=== PATIENT | male | born 1950 | race Caucasian/White ===

== ENCOUNTER 2019-07-21 12:46 | Outpatient (CLI) | payer MEDICARE, SELFPAY ==
--- NOTE | 2019-07-21 12:56 | XR_ITS ---
WS: [id number] RIGHT HAND: 3 VIEW(S) TECHNIQUE: PA, oblique and lateral. HISTORY: HAND PAIN, RIGHT COMPARISON: None available. No acute fracture or dislocation. No soft tissue or bone abnormality. Vascular calcifications. XR/XR hand RT min 3V* [id number] IMPRESSION: No RIGHT hand fracture.
== END 2019-07-21 12:47 | disposition home or self-care (01) ==
PROVIDERS: Absent Provider Internal Medicine; Family Provider Internal Medicine; Visit Provider Nurse Practitioner Family
DX: M79.641 Pain in right hand (principal)
CPT/HCPCS: 73130

== ENCOUNTER 2019-08-12 08:51 | Outpatient (CLI) | payer MEDICARE, SELFPAY ==
[2019-08-12 10:09] LABS: Basophils # 0.1 10^3/uL (0.0-0.1); Basophils % 0.7 %; Eosinophils # 0.3 10^3/uL (0.0-0.8); Eosinophils % 2.5 %; Hematocrit 44.7 % (42.0-52.0); Hemoglobin 14.4 g/dL (11.7-16.6); Lymphocytes # 2.3 10^3/uL (0.8-4.8); Lymphocytes % 22.6 %; Mean Corpuscular HGB Conc 32.2 g/dL (30.0-36.0); Mean Corpuscular Hemoglobin 26.8 pg (28.0-34.0); Mean Corpuscular Volume 83.1 fL (80-94); Mean Platelet Volume 11.8 fL (7.4-10.4); Monocytes % 9.6 %; Neutrophils # 6.4 10^3/uL (1.8-7.7); Nucleated Red Blood Cells % 0 %; Platelet Count 247 10^3/cmm (130-400); Red Blood Count 5.38 10^6/uL (4.1-5.3); Red Cell Distribution Width 14.7 % (12.1-15.1); White Blood Count 9.9 10^3/uL (4.0-10.0)
[2019-08-12 10:17] LABS: INR 1.02 (0.8-1.2)
[2019-08-12 10:23] LABS: Alanine Aminotransferase 12 U/L (0-41); Albumin Level 4.9 g/dL (3.5-5.2); Alkaline Phosphatase 82 IU/L (40-130); Anion Gap 15.7 (5-19); Aspartate Amino Transferase 15 U/L (0-40); Blood Urea Nitrogen 23 mg/dL (8-23); Calcium 9.9 mg/dL (8.5-10.5); Carbon Dioxide 24 mmol/L (22-29); Chloride 102 mmol/L (98-107); Globulin 2.5 g/dL (1.3-4.6); Glomerular Filtration Rate 83.7 mL/min (90-130); Glucose 103 mg/dL (74-106); Potassium 4.7 mmol/L (3.5-5.1); Sodium 137 mmol/L (136-145); Total Bilirubin 1.2 mg/dL (0.15-1.2); Total Protein 7.4 g/dL (6.6-8.7)
== END 2019-08-12 08:52 | disposition home or self-care (01) ==
LOC: LAB 09:01
PROVIDERS: Family Provider Internal Medicine; PCP Internal Medicine; Visit Provider Physician Assistant Medical
DX: Z94.4 Liver transplant status (principal); Z98.890 Other specified postprocedural states
CPT/HCPCS: 80053; 80197; 85025; 85610

== ENCOUNTER 2019-09-13 09:29 | Outpatient (CLI) | payer MEDICARE, SELFPAY ==
[2019-09-13 10:05] LABS: Basophils % 0.4 %; Eosinophils # 0.3 10^3/uL (0.0-0.8); Eosinophils % 3.3 %; Hematocrit 46.6 % (42.0-52.0); Lymphocytes % 22.4 %; Mean Corpuscular HGB Conc 32.2 g/dL (30.0-36.0); Mean Corpuscular Hemoglobin 27.7 pg (28.0-34.0); Mean Corpuscular Volume 86.1 fL (80-94); Mean Platelet Volume 11.5 fL (7.4-10.4); Monocytes # 1.1 10^3/uL (0.2-0.9); Neutrophils # 5.6 10^3/uL (1.8-7.7); Neutrophils % 61.2 %; Nucleated Red Blood Cells % 0 %; Platelet Count 244 10^3/cmm (130-400); Red Blood Count 5.41 10^6/uL (4.1-5.3); Red Cell Distribution Width 15.4 % (12.1-15.1); White Blood Count 9.1 10^3/uL (4.0-10.0)
[2019-09-13 10:20] LABS: Alanine Aminotransferase 10 U/L (0-41); Albumin Level 4.6 g/dL (3.5-5.2); Alkaline Phosphatase 93 IU/L (40-130); Anion Gap 13.7 (5-19); Aspartate Amino Transferase 17 U/L (0-40); Blood Urea Nitrogen 18 mg/dL (8-23); Calcium 10.1 mg/dL (8.5-10.5); Carbon Dioxide 27 mmol/L (22-29); Chloride 104 mmol/L (98-107); Globulin 3.2 g/dL (1.3-4.6); Glomerular Filtration Rate 73.9 mL/min (90-130); Glucose 100 mg/dL (65-115); Potassium 4.7 mmol/L (3.5-5.1); Sodium 140 mmol/L (136-145); Total Bilirubin 0.8 mg/dL (0.15-1.2); Total Protein 7.8 g/dL (6.6-8.7)
[2019-09-13 10:34] LABS: Slide Review Slide Review Perform
== END 2019-09-13 09:30 | disposition home or self-care (01) ==
LOC: LAB 09:37
PROVIDERS: Family Provider Internal Medicine; PCP Internal Medicine; Visit Provider Internal Medicine Gastroenterology
DX: Z94.4 Liver transplant status (principal); C22.0 Liver cell carcinoma; C79.70 Secondary malignant neoplasm of unspecified adrenal gland; C22.8 Malignant neoplasm of liver, primary, unspecified as to type; Z51.81 Encounter for therapeutic drug level monitoring
CPT/HCPCS: 36415; 80053; 80197; 85025; 85610

== ENCOUNTER 2019-10-12 08:36 | Outpatient (CLI) | payer MEDICARE, SELFPAY ==
[2019-10-12 09:26] LABS: Basophils # 0.1 10^3/uL (0.0-0.1); Basophils % 0.6 %; Eosinophils # 0.3 10^3/uL (0.0-0.8); Eosinophils % 3.3 %; Hematocrit 44.2 % (42.0-52.0); Hemoglobin 14.2 g/dL (11.7-16.6); Lymphocytes # 2.1 10^3/uL (0.8-4.8); Lymphocytes % 21.6 %; Mean Corpuscular HGB Conc 32.1 g/dL (30.0-36.0); Mean Corpuscular Hemoglobin 27.7 pg (28.0-34.0); Mean Corpuscular Volume 86.2 fL (80-94); Mean Platelet Volume 11.9 fL (7.4-10.4); Monocytes # 1.3 10^3/uL (0.2-0.9); Monocytes % 13.3 %; Neutrophils # 5.9 10^3/uL (1.8-7.7); Neutrophils % 60.3 %; Nucleated Red Blood Cells % 0 %; Platelet Count 251 10^3/cmm (130-400); Red Blood Count 5.13 10^6/uL (4.1-5.3); Red Cell Distribution Width 16.1 % (12.1-15.1); White Blood Count 9.8 10^3/uL (4.0-10.0)
[2019-10-12 09:29] LABS: INR 1.03 (0.8-1.2)
[2019-10-12 09:41] LABS: Alanine Aminotransferase 13 U/L (0-41); Albumin Level 4.5 g/dL (3.5-5.2); Alkaline Phosphatase 87 IU/L (40-130); Anion Gap 14.2 (5-19); Aspartate Amino Transferase 13 U/L (0-40); Blood Urea Nitrogen 18 mg/dL (8-23); Calcium 9.7 mg/dL (8.5-10.5); Carbon Dioxide 25 mmol/L (22-29); Chloride 104 mmol/L (98-107); Globulin 3.1 g/dL (1.3-4.6); Glomerular Filtration Rate 73.9 mL/min (90-130); Glucose 104 mg/dL (65-115); Osmolality Calculated 285 mOsm/kg (285-295); Potassium 4.2 mmol/L (3.5-5.1); Sodium 139 mmol/L (136-145); Total Bilirubin 0.8 mg/dL (0.15-1.2); Total Protein 7.6 g/dL (6.6-8.7)
== END 2019-10-12 08:37 | disposition home or self-care (01) ==
LOC: LAB 08:39
PROVIDERS: Family Provider Internal Medicine; PCP Internal Medicine; Visit Provider Physician Assistant Medical
DX: Z94.4 Liver transplant status (principal); Z51.81 Encounter for therapeutic drug level monitoring
CPT/HCPCS: 80053; 80197; 85025; 85610

== ENCOUNTER 2019-11-15 08:08 | Outpatient (CLI) | payer MEDICARE, SELFPAY ==
[2019-11-15 08:38] LABS: Basophils # 0.1 10^3/uL (0.0-0.1); Basophils % 0.6 %; Eosinophils # 0.5 10^3/uL (0.0-0.8); Hematocrit 44.4 % (42.0-52.0); Hemoglobin 14.6 g/dL (11.7-16.6); Lymphocytes # 2.6 10^3/uL (0.8-4.8); Lymphocytes % 25.5 %; Mean Corpuscular HGB Conc 32.9 g/dL (30.0-36.0); Mean Corpuscular Hemoglobin 28.1 pg (28.0-34.0); Mean Corpuscular Volume 85.4 fL (80-94); Mean Platelet Volume 12.3 fL (7.4-10.4); Monocytes # 1.2 10^3/uL (0.2-0.9); Monocytes % 11.9 %; Neutrophils # 5.8 10^3/uL (1.8-7.7); Neutrophils % 56.3 %; Nucleated Red Blood Cells % 0 %; Platelet Count 206 10^3/cmm (130-400); Red Cell Distribution Width 16.4 % (12.1-15.1); White Blood Count 10.3 10^3/uL (4.0-10.0)
[2019-11-15 08:53] LABS: Alanine Aminotransferase 12 U/L (0-41); Albumin Level 4.5 g/dL (3.5-5.2); Alkaline Phosphatase 87 IU/L (40-130); Anion Gap 17.4 (5-19); Aspartate Amino Transferase 13 U/L (0-40); Blood Urea Nitrogen 21 mg/dL (8-23); Calcium 9.7 mg/dL (8.5-10.5); Carbon Dioxide 23 mmol/L (22-29); Chloride 103 mmol/L (98-107); Globulin 3.6 g/dL (1.3-4.6); Glomerular Filtration Rate 95.6 mL/min (90-130); Glucose 106 mg/dL (65-115); Osmolality Calculated 285 mOsm/kg (285-295); Potassium 4.4 mmol/L (3.5-5.1); Sodium 139 mmol/L (136-145); Total Bilirubin 0.7 mg/dL (0.15-1.2); Total Protein 8.1 g/dL (6.6-8.7)
[2019-11-15 09:09] LABS: INR 0.99 (0.8-1.2)
== END 2019-11-15 08:09 | disposition home or self-care (01) ==
LOC: LAB 08:12
PROVIDERS: Family Provider Internal Medicine; PCP Internal Medicine; Visit Provider Physician Assistant Medical
DX: Z48.23 Encounter for aftercare following liver transplant (principal); Z51.81 Encounter for therapeutic drug level monitoring
CPT/HCPCS: 36415; 80053; 80197; 85025; 85610

== ENCOUNTER 2019-12-20 08:33 | Outpatient (CLI) | payer MEDICARE, SELFPAY ==
[2019-12-20 09:40] LABS: Hematocrit 41.2 % (42.0-52.0); Hemoglobin 13.2 g/dL (11.7-16.6); Mean Corpuscular Hemoglobin 28.6 pg (28.0-34.0); Mean Corpuscular Volume 89.2 fL (80-94); Mean Platelet Volume 11.7 fL (7.4-10.4); Platelet Count 215 10^3/cmm (130-400); Red Blood Count 4.62 10^6/uL (4.1-5.3); Red Cell Distribution Width 15.8 % (12.1-15.1); White Blood Count 10.8 10^3/uL (4.0-10.0)
[2019-12-20 09:55] LABS: Alanine Aminotransferase 11 U/L (0-41); Albumin Level 4.3 g/dL (3.5-5.2); Alkaline Phosphatase 81 IU/L (40-130); Anion Gap 15.4 (5-19); Aspartate Amino Transferase 12 U/L (0-40); Blood Urea Nitrogen 23 mg/dL (8-23); Calcium 9.5 mg/dL (8.5-10.5); Carbon Dioxide 23 mmol/L (22-29); Chloride 105 mmol/L (98-107); Globulin 3.1 g/dL (1.3-4.6); Glomerular Filtration Rate 83.4 mL/min (90-130); Glucose 104 mg/dL (65-115); Osmolality Calculated 285 mOsm/kg (285-295); Potassium 4.4 mmol/L (3.5-5.1); Sodium 139 mmol/L (136-145); Total Bilirubin 0.5 mg/dL (0.15-1.2); Total Protein 7.4 g/dL (6.6-8.7)
[2019-12-20 10:08] LABS: INR 1.03 (0.8-1.2)
[2019-12-20 10:55] LABS: Absolute Eosinophils 0.1 10^3/cmm (0.0-0.7); Absolute Segmented Neutrophil 8.1 10/cmm (1.6-7.1); Eosinophils 1 %; Lymphocytes 19 %; Lymphocytes Absolute 2.3 10^3/cmm (1.2-3.4); Monocytes Absolute 0.3 10^3/cmm (0.1-0.6); Platelet Estimate Normal (Normal); Segmented Neutrophils 75 %; Total Cells Counted 100 (0-100)
[2019-12-20 10:56] LABS: Poikilocytosis 2+
[2019-12-20 10:57] LABS: Burr Cells Trace
== END 2019-12-20 08:34 | disposition home or self-care (01) ==
LOC: LAB 08:38
PROVIDERS: PCP Internal Medicine; Visit Provider Physician Assistant Medical
DX: Z48.23 Encounter for aftercare following liver transplant (principal)
CPT/HCPCS: 80053; 80197; 85007; 85027; 85610

== ENCOUNTER 2020-02-03 08:40 | Outpatient (CLI) | payer MEDICARE, SELFPAY ==
[2020-02-03 09:43] LABS: Hematocrit 39.9 % (42.0-52.0); Hemoglobin 12.1 g/dL (11.7-16.6); Mean Corpuscular HGB Conc 30.3 g/dL (30.0-36.0); Mean Corpuscular Hemoglobin 27.6 pg (28.0-34.0); Mean Corpuscular Volume 91.1 fL (80-94); Mean Platelet Volume 12.4 fL (7.4-10.4); Platelet Count 246 10^3/cmm (130-400); Red Blood Count 4.38 10^6/uL (4.1-5.3); Red Cell Distribution Width 14.6 % (12.1-15.1); White Blood Count 9.9 10^3/uL (4.0-10.0)
[2020-02-03 10:08] LABS: INR 0.96 (0.8-1.2)
[2020-02-03 10:09] LABS: Alanine Aminotransferase 11 U/L (0-41); Albumin Level 4.2 g/dL (3.5-5.2); Alkaline Phosphatase 78 IU/L (40-130); Anion Gap 13.5 (5-19); Aspartate Amino Transferase 11 U/L (0-40); Blood Urea Nitrogen 19 mg/dL (8-23); Calcium 8.6 mg/dL (8.5-10.5); Carbon Dioxide 23 mmol/L (22-29); Chloride 106 mmol/L (98-107); Globulin 3.3 g/dL (1.3-4.6); Glomerular Filtration Rate 83.4 mL/min (90-130); Glucose 100 mg/dL (65-115); Osmolality Calculated 283 mOsm/kg (285-295); Potassium 4.5 mmol/L (3.5-5.1); Sodium 138 mmol/L (136-145); Total Bilirubin 0.8 mg/dL (0.15-1.2); Total Protein 7.5 g/dL (6.6-8.7)
[2020-02-03 10:43] LABS: Absolute Eosinophils 0.6 10^3/cmm (0.0-0.7); Absolute Segmented Neutrophil 6.3 10/cmm (1.6-7.1); Eosinophils 7 %; Lymphocytes 25 %; Monocytes Absolute 0.4 10^3/cmm (0.1-0.6); Platelet Estimate Normal (Normal); Segmented Neutrophils 64 %; Total Cells Counted 100 (0-100)
[2020-02-03 10:44] LABS: Burr Cells 1+
[2020-02-03 10:53] LABS: Poikilocytosis 1+
== END 2020-02-03 08:41 | disposition home or self-care (01) ==
PROVIDERS: PCP Internal Medicine; Visit Provider Physician Assistant Medical
DX: Z94.4 Liver transplant status (principal); C22.0 Liver cell carcinoma; C79.70 Secondary malignant neoplasm of unspecified adrenal gland; C22.8 Malignant neoplasm of liver, primary, unspecified as to type; Z51.81 Encounter for therapeutic drug level monitoring
CPT/HCPCS: 80053; 80197; 85007; 85027; 85610

== ENCOUNTER 2020-03-23 08:33 | Outpatient (CLI) | payer MEDICARE, SELFPAY ==
[2020-03-23 10:07] LABS: Basophils # 0.1 10^3/uL (0.0-0.1); Basophils % 0.8 %; Eosinophils # 0.6 10^3/uL (0.0-0.8); Eosinophils % 6.2 %; Hemoglobin 10.6 g/dL (11.7-16.6); Lymphocytes # 2.6 10^3/uL (0.8-4.8); Lymphocytes % 25.6 %; Mean Corpuscular HGB Conc 31.2 g/dL (30.0-36.0); Mean Corpuscular Volume 83.3 fL (80-94); Monocytes # 1.3 10^3/uL (0.2-0.9); Monocytes % 12.5 %; Neutrophils # 5.51 10^3/uL (1.8-7.7); Neutrophils % 54.6 %; Nucleated Red Blood Cells % 0 %; Platelet Count 289 10^3/cmm (130-400); Red Blood Count 4.08 10^6/uL (4.1-5.3); Red Cell Distribution Width 14.5 % (12.1-15.1); White Blood Count 10.1 10^3/uL (4.0-10.0)
[2020-03-23 10:31] LABS: Alanine Aminotransferase 14 U/L (0-41); Albumin Level 4.5 g/dL (3.5-5.2); Alkaline Phosphatase 79 IU/L (40-130); Anion Gap 11.4 (5-19); Aspartate Amino Transferase 17 U/L (0-40); Blood Urea Nitrogen 20 mg/dL (8-23); Calcium 8.6 mg/dL (8.5-10.5); Carbon Dioxide 25 mmol/L (22-29); Chloride 107 mmol/L (98-107); Globulin 3.2 g/dL (1.3-4.6); Glomerular Filtration Rate 95.6 mL/min (90-130); Glucose 104 mg/dL (65-115); Osmolality Calculated 285 mOsm/kg (285-295); Potassium 4.4 mmol/L (3.5-5.1); Sodium 139 mmol/L (136-145); Total Bilirubin 0.7 mg/dL (0.15-1.2); Total Protein 7.7 g/dL (6.6-8.7)
[2020-03-23 10:32] LABS: INR 1.01 (0.8-1.2)
== END 2020-03-23 08:34 | disposition home or self-care (01) ==
LOC: LAB 08:36
PROVIDERS: PCP Internal Medicine; Visit Provider Physician Assistant Medical
DX: Z94.4 Liver transplant status (principal); C22.0 Liver cell carcinoma; C79.70 Secondary malignant neoplasm of unspecified adrenal gland; C22.8 Malignant neoplasm of liver, primary, unspecified as to type; Z51.81 Encounter for therapeutic drug level monitoring
CPT/HCPCS: 36415; 80053; 80197; 85025; 85610

== ENCOUNTER 2020-06-05 08:20 | Outpatient (CLI) | payer MEDICARE, SELFPAY ==
[2020-06-05 08:55] LABS: Basophils # 0.1 10^3/uL (0.0-0.1); Basophils % 0.8 %; Eosinophils # 0.7 10^3/uL (0.0-0.8); Eosinophils % 7.2 %; Hematocrit 31.5 % (42.0-52.0); Hemoglobin 9.4 g/dL (11.7-16.6); Lymphocytes # 2.4 10^3/uL (0.8-4.8); Lymphocytes % 24.4 %; Mean Corpuscular HGB Conc 29.8 g/dL (30.0-36.0); Mean Corpuscular Hemoglobin 22.1 pg (28.0-34.0); Mean Corpuscular Volume 74.1 fL (80-94); Mean Platelet Volume 11.1 fL (7.4-10.4); Monocytes # 1.2 10^3/uL (0.2-0.9); Monocytes % 12.3 %; Neutrophils # 5.43 10^3/uL (1.8-7.7); Neutrophils % 54.9 %; Nucleated Red Blood Cells % 0 %; Platelet Count 367 10^3/cmm (130-400); Red Blood Count 4.25 10^6/uL (4.1-5.3); Red Cell Distribution Width 17.6 % (12.1-15.1); White Blood Count 9.9 10^3/uL (4.0-10.0)
[2020-06-05 09:25] LABS: INR 1.07 (0.8-1.2)
[2020-06-05 09:36] LABS: 25 Hydroxy Vitamin D 89 ng/mL (30-100); Alanine Aminotransferase 12 U/L (0-41); Albumin Level 4.4 g/dL (3.5-5.2); Alkaline Phosphatase 84 IU/L (40-130); Anion Gap 13.5 (5-19); Aspartate Amino Transferase 12 U/L (0-40); Blood Urea Nitrogen 23 mg/dL (8-23); Calcium 8.8 mg/dL (8.5-10.5); Carbon Dioxide 25 mmol/L (22-29); Chloride 106 mmol/L (98-107); Ferritin 9 ng/mL (30-400); Globulin 3.1 g/dL (1.3-4.6); Glomerular Filtration Rate 83.4 mL/min (90-130); Glucose 101 mg/dL (65-115); Iron 14 ug/dL (59-158); Osmolality Calculated 294 mOsm/kg (285-295); Percent Saturation 3.5 % (20-50); Potassium 4.5 mmol/L (3.5-5.1); Sodium 140 mmol/L (136-145); Total Bilirubin 0.4 mg/dL (0.15-1.2); Total Iron Binding Capacity 393 mcg/dl; Total Protein 7.5 g/dL (6.6-8.7); Unsaturated Iron Binding 379 ug/dL (112-347)
[2020-06-05 09:47] LABS: Folate Level 17.9 ng/mL (4.5-32.2)
[2020-06-05 14:53] LABS: Tumor Marker Alpha Fetoprotein 21.1 ng/mL (0-8.3)
[2020-06-05 15:01] LABS: Vitamin B12 2000 pg/mL (232-1245)
== END 2020-06-05 08:21 | disposition home or self-care (01) ==
LOC: LAB 08:23
PROVIDERS: PCP Internal Medicine; Visit Provider Physician Assistant Medical
DX: Z94.4 Liver transplant status (principal); C22.0 Liver cell carcinoma; C79.70 Secondary malignant neoplasm of unspecified adrenal gland; C22.8 Malignant neoplasm of liver, primary, unspecified as to type; Z51.81 Encounter for therapeutic drug level monitoring
CPT/HCPCS: 36415; 80053; 80197; 82105; 82306; 82607; 82728; 82746; 83540; 83550; 85025; 85610

== ENCOUNTER 2020-08-08 09:21 | Outpatient (CLI) | payer MEDICARE, SELFPAY ==
[2020-08-08 10:56] LABS: Basophils # 0.1 10^3/uL (0.0-0.1); Eosinophils # 0.5 10^3/uL (0.0-0.8); Eosinophils % 5.6 %; Hematocrit 23.2 % (42.0-52.0); Hemoglobin 6.6 g/dL (11.7-16.6); Lymphocytes # 1.9 10^3/uL (0.8-4.8); Lymphocytes % 21.6 %; Mean Corpuscular HGB Conc 28.4 g/dL (30.0-36.0); Mean Corpuscular Volume 66.9 fL (80-94); Mean Platelet Volume 11.5 fL (7.4-10.4); Monocytes # 1.2 10^3/uL (0.2-0.9); Monocytes % 13.9 %; Neutrophils % 57.3 %; Nucleated Red Blood Cells % 0 %; Platelet Count 467 10^3/cmm (130-400); Red Blood Count 3.47 10^6/uL (4.1-5.3); Red Cell Distribution Width 19.7 % (12.1-15.1); White Blood Count 8.7 10^3/uL (4.0-10.0)
[2020-08-08 11:15] LABS: Slide Review Slide Review Perform
[2020-08-08 11:17] LABS: INR 1.11 (0.8-1.2)
[2020-08-08 11:26] LABS: Alanine Aminotransferase 10 U/L (0-41); Alkaline Phosphatase 77 IU/L (40-130); Anion Gap 12.6 (5-19); Aspartate Amino Transferase 10 U/L (0-40); Blood Urea Nitrogen 16 mg/dL (8-23); Calcium 8.8 mg/dL (8.5-10.5); Carbon Dioxide 24 mmol/L (22-29); Chloride 105 mmol/L (98-107); Globulin 2.9 g/dL (1.3-4.6); Glomerular Filtration Rate 73.9 mL/min (90-130); Glucose 100 mg/dL (65-115); Osmolality Calculated 285 mOsm/kg (285-295); Potassium 4.6 mmol/L (3.5-5.1); Sodium 137 mmol/L (136-145); Total Bilirubin 0.7 mg/dL (0.15-1.2); Total Protein 6.9 g/dL (6.6-8.7)
[2020-08-08 14:54] LABS: Tumor Marker Alpha Fetoprotein 29.8 ng/mL (0-8.3)
== END 2020-08-08 09:22 | disposition home or self-care (01) ==
LOC: LAB 09:26
PROVIDERS: PCP Internal Medicine; Visit Provider Physician Assistant Medical
DX: Z94.4 Liver transplant status (principal); C22.0 Liver cell carcinoma; C79.70 Secondary malignant neoplasm of unspecified adrenal gland; C22.8 Malignant neoplasm of liver, primary, unspecified as to type; Z51.81 Encounter for therapeutic drug level monitoring
CPT/HCPCS: 80053; 80197; 82105; 85025; 85610

== ENCOUNTER 2020-08-16 09:24 | Outpatient (CLI) | payer MEDICARE, SELFPAY ==
[2020-08-16 10:07] LABS: Basophils # 0.1 10^3/uL (0.0-0.1); Basophils % 0.7 %; Eosinophils # 0.5 10^3/uL (0.0-0.8); Eosinophils % 4.8 %; Hematocrit 28.8 % (42.0-52.0); Hemoglobin 7.9 g/dL (11.7-16.6); Lymphocytes # 2.5 10^3/uL (0.8-4.8); Lymphocytes % 25.8 %; Mean Corpuscular HGB Conc 27.4 g/dL (30.0-36.0); Mean Corpuscular Hemoglobin 19.8 pg (28.0-34.0); Mean Corpuscular Volume 72.2 fL (80-94); Mean Platelet Volume 11.1 fL (7.4-10.4); Monocytes # 1.2 10^3/uL (0.2-0.9); Monocytes % 12.7 %; Neutrophils # 5.39 10^3/uL (1.8-7.7); Neutrophils % 55.3 %; Nucleated Red Blood Cells % 0 %; Platelet Count 508 10^3/cmm (130-400); Red Blood Count 3.99 10^6/uL (4.1-5.3); Red Cell Distribution Width 27.1 % (12.1-15.1); White Blood Count 9.8 10^3/uL (4.0-10.0)
== END 2020-08-16 09:25 | disposition home or self-care (01) ==
PROVIDERS: PCP Internal Medicine; Visit Provider Internal Medicine
DX: D62 Acute posthemorrhagic anemia (principal)
CPT/HCPCS: 85025; 86850; 86900

== ENCOUNTER 2020-09-20 08:17 | Outpatient (CLI) | payer MEDICARE, SELFPAY ==
[2020-09-20 08:47] LABS: Basophils # 0.1 10^3/uL (0.0-0.1); Basophils % 0.6 %; Eosinophils # 0.5 10^3/uL (0.0-0.8); Eosinophils % 5.1 %; Hematocrit 40.8 % (42.0-52.0); Hemoglobin 12.6 g/dL (11.7-16.6); Lymphocytes # 2.3 10^3/uL (0.8-4.8); Lymphocytes % 23.7 %; Mean Corpuscular HGB Conc 30.9 g/dL (30.0-36.0); Mean Corpuscular Hemoglobin 25.6 pg (28.0-34.0); Mean Corpuscular Volume 82.9 fL (80-94); Monocytes % 10.6 %; Neutrophils # 5.66 10^3/uL (1.8-7.7); Neutrophils % 59.5 %; Nucleated Red Blood Cells % 0 %; Platelet Count 309 10^3/cmm (130-400); Red Blood Count 4.92 10^6/uL (4.1-5.3); White Blood Count 9.5 10^3/uL (4.0-10.0)
[2020-09-20 09:12] LABS: INR 1.05 (0.8-1.2)
[2020-09-20 09:18] LABS: Alanine Aminotransferase 13 U/L (0-41); Albumin Level 4.4 g/dL (3.5-5.2); Alkaline Phosphatase 74 IU/L (40-130); Anion Gap 11.3 (5-19); Aspartate Amino Transferase 15 U/L (0-40); Blood Urea Nitrogen 22 mg/dL (8-23); Calcium 9.2 mg/dL (8.5-10.5); Carbon Dioxide 27 mmol/L (22-29); Chloride 103 mmol/L (98-107); Globulin 3.3 g/dL (1.3-4.6); Glucose 94 mg/dL (65-115); Osmolality Calculated 287 mOsm/kg (285-295); Potassium 4.3 mmol/L (3.5-5.1); Sodium 137 mmol/L (136-145); Total Bilirubin 0.5 mg/dL (0.15-1.2); Total Protein 7.7 g/dL (6.6-8.7)
[2020-09-20 09:45] LABS: Add RBC Morph Yes; Slide Review Slide Review Perform
[2020-09-20 09:46] LABS: Mean Platelet Volume 8.3 fL (7.4-10.4)
[2020-09-20 09:51] LABS: Anisocytosis 2+; Dimorphic RBC 2+; Microcytosis 1+; Ovalocytes 1+; Poikilocytosis 2+; RBC Morph Comp Yes; Schistocytes 1+; Tear Drop Cells Trace
== END 2020-09-20 08:18 | disposition home or self-care (01) ==
PROVIDERS: PCP Internal Medicine; Visit Provider Physician Assistant Medical
DX: Z94.4 Liver transplant status (principal); C22.0 Liver cell carcinoma; C79.70 Secondary malignant neoplasm of unspecified adrenal gland; C22.8 Malignant neoplasm of liver, primary, unspecified as to type; Z51.81 Encounter for therapeutic drug level monitoring
CPT/HCPCS: 36415; 80053; 80197; 85025; 85610

== ENCOUNTER 2020-10-03 08:30 | Emergency (ER) | payer MEDICARE, SELFPAY ==
[2020-10-03 08:55] VITALS: BP 141/92; PULSE 70; RESP 16; TEMP 36.8; O2SAT 99; BMI 24.3
[2020-10-03 09:05] VITALS: BP 141/92; PULSE 65; RESP 16; O2SAT 100
--- NOTE | 2020-10-03 09:09 | CT_ITS ---
WS: [id number] CT ABDOMEN PELVIS TECHNIQUE: Contrast-enhanced CT of the abdomen and pelvis with coronal and sagittal reformatted image s. CLINICAL INFORMATION: abd pain COMPARISON: None. DLP: 1020.[address] scans at [facility] use at least one of these dose optimization techniques: automat ed exposure control; mA and/or kV adjustment per patient size (includes targeted exams where dose is matched to clinical indication); or iterative reconstruction. FINDINGS:Normal sigmoid colon. No evidence of high-grade small or large bowel obstruction. Inflammato ry stranding and edema in short segment left descending colon and left lower quadrant likely due to d iverticulitis or colitis. Single surgical clip in this area. Small associated peripheral enhancing lo bulated abscess measuring 11 x 10 mm and 17 x 10 mm. Diffuse fatty infiltration of the liver. Normal portal vein and splenic vein. Normal GE junction. Yamilet or cholecystectomy. Dilatation of the common bile duct or choledochal cyst in the gallbladder fossa w hich tapers normally distally. Pancreatic head is normal. 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 This measures approximately 1.7 x 2.1 CM. Associated calcified vessel. Lung bases are well aerated. Postoperative changes left adrenal fossa with residual left adrenal gla nd tissue. No hydronephrosis in either kidney. Normal renal parenchymal enhancement. Mild renal corti rufino atrophy.Chronic appearing traumatic postoperative changes involving the spleen with multiple smal l splenules and calcification. Normal caliber abdominal aorta. Aortic calcification. Minimal chronic compression superior endplate L 2 with Schmorl's node. No abdominal or pelvic lymphadenopathy. A few prominent lymph nodes in the upper abdomen likely reactive. No periaortic or retroperitoneal ly mphadenopathy. CT/CT abdomen pelvis w con* [id number] IMPRESSION: 1. Prominent inflammatory stranding and edema involving short segment descendi ng left colon and left lower quadrant with colonic thickening and induration li jessie acute diverticulitis or colitis. Small eccentric lobulated peripheral enha ncing fluid collection measuring 11 x 10 mm and 17 x 10 mm. 2. Hazy induration central mesentery likely due to chronic mesenteric infarct with fat necrosis described above. 3. Prior postoperative changes cholecystectomy with dilated common bile duct o r choledochal cyst in the gallbladder fossa. Normal tapering of the common bile duct distally. 4. Prior postoperative changes left adrenal fossa with posttraumatic or postop erative changes involving the spleen 5. No evidence of high-grade small or large bowel obstruction. 6. Enlarged prostate measuring 4.8 cm 7. Diffuse fatty infiltration liver. Notified Jeffrey Lofton DO at 10/03/2020 10:04 AM.
--- NOTE | 2020-10-03 09:13 | ED_ITS ---
HPI - Abdominal Pain General: Chief Complaint: Abdominal Pain Stated Complaint: ab pain, blood in stool Time Seen by Provider: 10/03/20 08:39 History of Present Illness: HPI narrative: 70-year-old male presents emergency room with complaint of lower abdominal pain that he had for the last several days he is also had black tarry stools. 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 He has been getting follow-up regularly in [place] and recently had repeat imaging that had some concerns but is not sure exactly what they were. Initially he told me he had some bright red blood mixed in the stool and this is mostly black stool. He has not had any epigastric discomfort he is not on any anticoagulants. No hematemesis or coffee-ground emesis. MD elicited complaint: abdominal pain Pertinent past history: constipation and other (Liver CA and adrenal CA) Onset (ago): day(s) Pain Consistency: constant Location: RLQ Severity: moderate Quality: cramping and stabbing Radiation: none Migration to: no migration Exacerbating factors: nothing Relieving factors: nothing Associated Symptoms: Reports hematochezia, melena, nausea and poor appetite; Denies anorexia, belching, bloating, change in bowel habits, change in stool character, chills, coffee ground emesis, constipation, GI cramping, diarrhea, dyspepsia, dysuria, excessive flatus, fever(s), heartburn, hematuria, hematemesis, fecal incontinence, loose stools and syncope Review of Systems Const: Denies: fever(s) or chills Card: Denies: syncope GI: Reports: nausea, hematochezia and melena; Denies: hematemesis, coffee ground emesis, heartburn, diarrhea, constipation, bloating, GI cramping, belching, excessive flatus, fecal incontinence, change in bowel habits or change in stool character : Denies: dysuria or hematuria Physical Exam Const: COMMON NORMALS: no acute distress GENERAL APPEARANCE: cooperative and comfortable ORIENTATION/CONSCIOUSNESS: Yes awake, Yes oriented to person, Yes oriented to place and Yes oriented to time HENMT: COMMON NORMALS: normocephalic HEAD & SCALP: normocephalic Eye: COMMON NORMALS: Equal, round and reactive pupils present, EOMs intact bilaterally, conjunctivae normal and no scleral icterus CONJUNCTIVA: Yes conjunctivae normal PUPIL: Yes Equal, round and reactive pupils present Neck/C-Spine: COMMON NORMALS: full ROM, no lymphadenopathy, supple and no JVD Lymph: LYMPHATIC: no lymphadenopathy noted and no lymphedema noted Resp: COMMON NORMALS: normal respiratory effort, No retractions, No use of accessory muscles and clear to auscultation bilaterally AUSCULTATION: clear to auscultation bilaterally Cardio: COMMON NORMALS: no JVD, regular rate, regular rhythm and No murmurs present (Cardio) RATE: regular rate RHYTHM: regular rhythm GI: AUSCULTATION: Yes normoactive bowel sounds PALPATION: Yes Tenderness to palpation present (GI) Details: LLQ and RLQ and No Guarding due to palpation present (GI) RECTAL EXAM: Yes prostate abnormal enlarged and Yes heme positive stool Extremity: COMMON NORMALS: normal to inspection, capillary refill normal, no clubbing, cyanosis or edema, no calf tenderness and no pedal edema Neuro: SENSORIUM/ORIENTATION: Yes oriented to person, Yes oriented to place and Yes oriented to time Skin: COMMON NORMALS: no rashes or lesions noted GENERAL SKIN EXAM: no rashes or lesions noted Course Vital Signs: Vital signs: Vital Signs Temperature 98.3 F 10/03/20 08:55 Pulse Rate 60 10/03/20 10:12 Respiratory Rate 16 10/03/20 10:12 Blood Pressure 139/86 10/03/20 10:12 Pulse Oximetry 98 10/03/20 10:12 MDM - Abdominal Pain MDM Narrative: Medical decision making narrative: Discussed with Dr. Hicks also discussed with the hepatology on-call doctor at [facility] Dr. Hicks recommended we transfer him back [facility] given the findings of the CT. She been tracking a alpha-fetoprotein which remained elevated and we are suspicious of a recurrence of his tumor discussing with our radiologist there is a possibility that the abnormality seen on the left side of the colon may be a recurrence of his tumor or diverticulitis. There is a question of small perforations that are loculated as well as a lot of localized inflammation. We will start him on Zosyn here and transfer him to [place] for further evaluation given his complicated overall history discussed with the patient he agrees we will keep him n.p.o. and start maintenance fluids. Lab Data: Labs: Lab Results 0310/03/20 10/03/20 Range/Units 09:14 09:14 09:14 WBC 10.5 H (4.0-10.0) 10^3/ uL RBC 4.71 (4.1-5.3) 10^6/u L Hgb 12.2 (11.7-16.6) g/dL Hct 38.8 L (42.0-52.0) % MCV 82.4 (80-94) fL MCH 25.9 L (28.0-34.0) pg MCHC 31.4 (30.0-36.0) g/dL RDW Not Reportable Plt Count 315 (130-400) 10^3/c mm MPV Not Reportable Neut % (Auto) 60.7 % Lymph % (Auto) 22.9 % Loving % (Auto) 12.0 % Eos % (Auto) 3.1 % Baso % (Auto) 0.8 % Neut # (Auto) 6.36 (1.8-7.7) 10^3/u L Lymph # (Auto) 2.4 (0.8-4.8) 10^3/u L Loving # (Auto) 1.3 H (0.2-0.9) 10^3/u L Eos # (Auto) 0.3 (0.0-0.8) 10^3/u L Baso # (Auto) 0.1 (0.0-0.1) 10^3/u L Nucleated RBC % (a uto) 0 % Nucleated RBCs # 0.0 /100WBC Giant Platelets Trace Dimorphic RBCs 1+ H Poikilocytosis 2+ H Anisocytosis 2+ H Microcytosis 1+ H Tear Drop Cells Trace Ovalocytes 1+ H Schistocytes 1+ H PT 14.20 (12.1-14.9) SECO NDS INR 1.07 (0.8-1.2) APTT 27.8 (23.9-36.7) SECO NDS Sodium 138 (136-145) mmol/L Potassium 4.3 (3.5-5.1) mmol/L Chloride 102 (98-107) mmol/L Carbon Dioxide 26 (22-29) mmol/L Anion Gap 14.3 (5-19) BUN 16 (8-23) mg/dL Creatinine 0.7 (0.7-1.2) mg/dL GFR Calculation Not Reportable Glucose 90 (65-115) mg/dL Calculated Osmolal ity 287 (285-295) mOsm/k g Calcium 9.3 (8.5-10.5) mg/dL Total Bilirubin 0.3 (0.15-1.2) mg/dL AST 12 (0-40) U/L ALT 19 (0-41) U/L Alkaline Phosphata se 66 (40-130) IU/L Total Protein 7.9 (6.6-8.7) g/dL Albumin 4.1 (3.5-5.2) g/dL Globulin 3.8 (1.3-4.6) g/dL Lipase 21 (13-60) U/L Urine Color (Yellow) Urine Appearance (CLEAR) Urine pH (5-7) Ur Specific Gravit y (1.005-1.030) Urine Protein (Negative) Urine Glucose (UA) (Normal) Urine Ketones (Negative) Urine Blood (Negative) Urine Nitrate (Negative) Urine Bilirubin (Negative) Prot Sulfosalicyli c Acd (Negative) Urine Urobilinogen (Negative) mg/dL Ur Leukocyte Rafaela ase (Negative) 10/03/20 Range/Units 11:27 WBC (4.0-10.0) 10^3/ uL RBC (4.1-5.3) 10^6/u L Hgb (11.7-16.6) g/dL Hct (42.0-52.0) % MCV (80-94) fL MCH (28.0-34.0) pg MCHC (30.0-36.0) g/dL RDW Plt Count (130-400) 10^3/c mm MPV Neut % (Auto) % Lymph % (Auto) % Loving % (Auto) % Eos % (Auto) % Baso % (Auto) % Neut # (Auto) (1.8-7.7) 10^3/u L Lymph # (Auto) (0.8-4.8) 10^3/u L Loving # (Auto) (0.2-0.9) 10^3/u L Eos # (Auto) (0.0-0.8) 10^3/u L Baso # (Auto) (0.0-0.1) 10^3/u L Nucleated RBC % (a uto) % Nucleated RBCs # /100WBC Giant Platelets Dimorphic RBCs Poikilocytosis Anisocytosis Microcytosis Tear Drop Cells Ovalocytes Schistocytes PT (12.1-14.9) SECO NDS INR (0.8-1.2) APTT (23.9-36.7) SECO NDS Sodium (136-145) mmol/L Potassium (3.5-5.1) mmol/L Chloride (98-107) mmol/L Carbon Dioxide (22-29) mmol/L Anion Gap (5-19) BUN (8-23) mg/dL Creatinine (0.7-1.2) mg/dL GFR Calculation Glucose (65-115) mg/dL Calculated Osmolal ity (285-295) mOsm/k g Calcium (8.5-10.5) mg/dL Total Bilirubin (0.15-1.2) mg/dL AST (0-40) U/L ALT (0-41) U/L Alkaline Phosphata se (40-130) IU/L Total Protein (6.6-8.7) g/dL Albumin (3.5-5.2) g/dL Globulin (1.3-4.6) g/dL Lipase (13-60) U/L Urine Color Yellow (Yellow) Urine Appearance Clear (CLEAR) Urine pH 8 H (5-7) Ur Specific Gravit y 1.015 (1.005-1.030) Urine Protein Neg (Negative) Urine Glucose (UA) Norm (Normal) Urine Ketones Negative (Negative) Urine Blood Neg (Negative) Urine Nitrate Negative (Negative) Urine Bilirubin Neg (Negative) Prot Sulfosalicyli c Acd Negative (Negative) Urine Urobilinogen Norm (Negative) mg/dL Ur Leukocyte Rafaela ase Negative (Negative) Discharge Plan Discharge Patient Disposition: Xfer Short-Term Hosp Clinical Impression: Diverticulitis, Hepatic carcinoma, Status post liver transplant Condition: Stable Prescriptions: No Action Norvasc 5 mg Tablet 5 mg PO QAM RF: 0 Protonix 20 mg Tablet,Delayed Release (Dr/Ec) 20 mg PO QAM RF: 0 tacrolimus 0.5 mg Capsule See Rx Instructions .ROUTE .COMPLEX RF: 0 magnesium oxide 400 mg magnesium Tablet 800 mg PO BID RF: 0 Cecilio-Plex Cap 1 cap PO DAILY RF: 0 Prostate Cap Otc 1 cap PO DAILY RF: 0 Vitamin B-12 1 cap PO DAILY RF: 0 Vitamin D3 1 cap PO DAILY RF: 0 iron 1 cap PO BID RF: 0 Aspir-81 81 mg Tablet,Delayed Release (Dr/Ec) 81 mg PO DAILY RF: 0 Referrals: Azra Cortez MD [Primary Care Provider] - Coding Level of Care Code ED [employer] for Ruthie Choudhury
[2020-10-03 09:21] LABS: Basophils # 0.1 10^3/uL (0.0-0.1); Basophils % 0.8 %; Eosinophils # 0.3 10^3/uL (0.0-0.8); Eosinophils % 3.1 %; Hematocrit 38.8 % (42.0-52.0); Hemoglobin 12.2 g/dL (11.7-16.6); Lymphocytes # 2.4 10^3/uL (0.8-4.8); Lymphocytes % 22.9 %; Mean Corpuscular HGB Conc 31.4 g/dL (30.0-36.0); Mean Corpuscular Hemoglobin 25.9 pg (28.0-34.0); Mean Corpuscular Volume 82.4 fL (80-94); Monocytes # 1.3 10^3/uL (0.2-0.9); Neutrophils # 6.36 10^3/uL (1.8-7.7); Neutrophils % 60.7 %; Nucleated Red Blood Cells % 0 %; Platelet Count 315 10^3/cmm (130-400); Red Blood Count 4.71 10^6/uL (4.1-5.3); White Blood Count 10.5 10^3/uL (4.0-10.0)
[2020-10-03 09:36] LABS: Partial Thromboplastin Time 27.8 SECONDS (23.9-36.7)
[2020-10-03] MEDS: iohexol 300 mg/mL 100 mL Btl IV (09:37)
[2020-10-03 09:42] LABS: Alanine Aminotransferase 19 U/L (0-41); Albumin Level 4.1 g/dL (3.5-5.2); Alkaline Phosphatase 66 IU/L (40-130); Anion Gap 14.3 (5-19); Aspartate Amino Transferase 12 U/L (0-40); Blood Urea Nitrogen 16 mg/dL (8-23); Calcium 9.3 mg/dL (8.5-10.5); Carbon Dioxide 26 mmol/L (22-29); Chloride 102 mmol/L (98-107); Globulin 3.8 g/dL (1.3-4.6); Glucose 90 mg/dL (65-115); INR 1.07 (0.8-1.2); Lipase 21 U/L (13-60); Osmolality Calculated 287 mOsm/kg (285-295); Potassium 4.3 mmol/L (3.5-5.1); Sodium 138 mmol/L (136-145); Total Bilirubin 0.3 mg/dL (0.15-1.2); Total Protein 7.9 g/dL (6.6-8.7)
[2020-10-03 10:12] VITALS: BP 139/86; PULSE 60; RESP 16; O2SAT 98
[2020-10-03 10:28] LABS: Add RBC Morph Yes; Slide Review Slide Review Perform
[2020-10-03 10:29] LABS: Anisocytosis 2+; Dimorphic RBC 1+; Poikilocytosis 2+
[2020-10-03 10:30] LABS: Giant Platelets Trace; Microcytosis 1+; Ovalocytes 1+; RBC Morph Comp Yes; Schistocytes 1+; Tear Drop Cells Trace
[2020-10-03 11:31] LABS: Add Urine Microscopic? NO
[2020-10-03 11:34] LABS: Sulfosalicylic Acid Urine Negative (Negative); Urine Appearance Clear (CLEAR); Urine Color Yellow (Yellow); pH Urine 8 (5-7)
[2020-10-03 11:35] LABS: Bilirubin Urine Neg (Negative); Blood Urine Neg (Negative); Glucose Urine UA Norm (Normal); Ketones Urine Negative (Negative); Leukocyte Esterase Urine Negative (Negative); Nitrate Urine Negative (Negative); Protein Urine Neg (Negative); Specific Gravity, Urine 1.015 (1.005-1.030); Urobilinogen Urine Norm (Negative)
[2020-10-03] MEDS: piperacillin-tazobactam 3.375 GM in sodium chloride 0.9% (plus) 50 ML IV (12:03)
[2020-10-03] MEDS: D5-NS 0.45% + KCL 20 mEq 20 MEQ/1,000 ML BAG 150 MEQ IV (14:48)
[2020-10-03 17:07] VITALS: BP 128/86; PULSE 87; RESP 16; O2SAT 95
[2020-10-03 18:01] VITALS: BP 128/74; PULSE 84; RESP 18; O2SAT 98
== END 2020-10-03 18:04 | disposition short-term general hospital (02) ==
PROVIDERS: Physician Assistant; Emergency Provider Family Medicine; PCP Internal Medicine
DX: K57.92 Diverticulitis of intestine, part unspecified, without perforation or abscess without bleeding (principal); C22.0 Liver cell carcinoma; Z94.4 Liver transplant status; Z79.82 Long term (current) use of aspirin
CPT/HCPCS: 74177; 80053; 81003; 83690; 85025; 85610; 85730; 96365; 96366; 96367; 99285; J2543; Q9967

== ENCOUNTER 2020-10-22 08:14 | Outpatient (CLI) | payer MEDICARE, SELFPAY ==
--- NOTE | 2020-10-22 08:33 | CT_ITS ---
WS: [id number] CT ABDOMEN AND PELVIS WITH CONTRAST HISTORY: DIVERTICULITIS, ACUTE, hepatocellular CARCINOMA TECHNIQUE: Imaging performed of the abdomen and pelvis with IV contrast. Single phase imaging of the abdomen. Coronal and sagittal reformats are submitted. All CT scans at [facility] use at least one of these dose optimization techniques: automated exposure control; mA and/or kV adjustment per patient size (includes targeted exams where dose is matched to clinical indication); or iterativ e reconstruction. IV CONTRAST: Omnipaque 300; 95 mL IV. Oral contrast: Yes. DLP: 1133.91 mGycm COMPARISON: 10/03/2020 Lower thorax: Lung bases are clear. Heart is normal size. Small hiatal hernia. Liver/biliary system: Status post hepatic transplant as per history. There is no mass or bile duct di latation. Prominent central common bile duct. This is adjacent to the surgical clips. Common bile ritesh t at pancreatic head is normal. Gallbladder: Status post cholecystectomy. Pancreas: Normal pancreatic head. Mild atrophy of the pancreatic body and the pancreatic duct is mild ly prominent. No suspicious cystic mass in the body of the pancreas measuring 7 mm. This may be relat ed to side branch of the duct. Spleen: Small caliber spleen with calcifications. Lobulated spleen with a focal area of cystic necros is. This may be due to autoinfarction or prior trauma. Numerous surgical clips are noted in the LEFT upper abdomen. Adrenal glands: Normal RIGHT adrenal gland. LEFT adrenal gland is not definitely identified as a sepa rate structure. By history prior LEFT adrenalectomy. Right kidney: Normal. Left kidney: Mild atrophy of the LEFT kidney. Decreased areas of enhancement involving the superior m edial LEFT kidney probably related to prior ischemia. There is adjacent fat necrosis between the uppe r pole pole of the kidney and spleen. There is additional cystic nodule measuring 2.[address] its longe st diameter in the LEFT upper abdomen in the expected location of the adrenal gland and adjacent to t he superior pole of the kidney. Aorta: Mild atherosclerosis with no aneurysm. Lymphadenopathy: Cystic nodules LEFT upper abdomen expected location of the LEFT adrenal gland. This is also an area of fat necrosis. Cannot exclude cystic lymphadenopathy. This could be postoperative c hange. Focal area of fat necrosis in the central mesentery measures 1.8 cm in diameter similar to the prior study. Free fluid: None. GI tract: Prior appendectomy. There is diffuse fecal retention. Previously described inflammatory pro cess involving the descending colon has significantly improved. There is no obstruction. There is now a soft tissue mass distending the distal descending colon measuring 3.3 x 3.2 cm. This soft tissue m ass is better seen today as there is oral contrast present. Neoplasm is not excluded. Just lateral to the descending colon as a separate tubular structure which may be an elongated diverticulum. May be an area of fat necrosis but appears separate from the main lumen of the colon. Abdominal wall: Midline postsurgical changes. Pelvis: Moderate enlargement of the prostate gland. No free fluid or adenopathy in the pelvis. Bones: Mild anterior wedging of L2. CT/CT abdomen pelvis w con* [id number] IMPRESSION: 1. Resolution of the previously described inflammatory process involving the d escending colon. Residual mild soft tissue thickening in a tubular form which m ay be related to a healing diverticular process or area of fat necrosis. 2. Soft tissue distending the descending colon measures 3.3 x 3.2 cm appears m asslike. Recommend colonoscopy to exclude neoplasm. 3. Prior appendectomy and cholecystectomy. 4. Abnormal spleen may be due to prior autoinfarction or trauma. 5. Prior LEFT adrenalectomy. In the adrenalectomy site is a small lobulated cy stic structure which could be cystic adenopathy or postsurgical changes. No int erval change since 10/03/2020. 6. Mild pancreatic atrophy with side duct branching. 7. Central fat necrosis in the mesentery. 8. No ascites or GI tract obstruction.
[2020-10-22] MEDS: iohexol 300 mg/mL 50 mL Btl PO (08:35)
[2020-10-22] MEDS: iohexol 300 mg/mL 100 mL Btl IV (10:03)
== END 2020-10-22 08:15 | disposition home or self-care (01) ==
LOC: RADWPI 08:26
PROVIDERS: PCP Internal Medicine; Visit Provider Internal Medicine
DX: K57.92 Diverticulitis of intestine, part unspecified, without perforation or abscess without bleeding (principal); C22.0 Liver cell carcinoma; K86.89 Other specified diseases of pancreas; E89.6 Postprocedural adrenocortical (-medullary) hypofunction; Z90.49 Acquired absence of other specified parts of digestive tract; Q42.8 Congenital absence, atresia and stenosis of other parts of large intestine
CPT/HCPCS: 74177; Q9967

== ENCOUNTER 2020-10-26 09:11 | Outpatient (CLI) | payer MEDICARE, SELFPAY ==
[2020-10-26 09:57] LABS: Basophils # 0.1 10^3/uL (0.0-0.1); Basophils % 0.6 %; Eosinophils # 0.6 10^3/uL (0.0-0.8); Eosinophils % 5.8 %; Hematocrit 38.5 % (42.0-52.0); Lymphocytes # 2.3 10^3/uL (0.8-4.8); Lymphocytes % 22.1 %; Mean Corpuscular HGB Conc 31.2 g/dL (30.0-36.0); Mean Corpuscular Hemoglobin 26.8 pg (28.0-34.0); Mean Corpuscular Volume 85.9 fL (80-94); Monocytes # 1.3 10^3/uL (0.2-0.9); Monocytes % 13.2 %; Neutrophils # 5.86 10^3/uL (1.8-7.7); Neutrophils % 57.4 %; Nucleated Red Blood Cells % 0 %; Platelet Count 320 10^3/cmm (130-400); Red Blood Count 4.48 10^6/uL (4.1-5.3); Red Cell Distribution Width 23.3 % (12.1-15.1); White Blood Count 10.2 10^3/uL (4.0-10.0)
[2020-10-26 10:09] LABS: INR 0.95 (0.8-1.2)
[2020-10-26 10:28] LABS: Slide Review Slide Review Perform
[2020-10-26 10:29] LABS: Add RBC Morph Yes
[2020-10-26 10:30] LABS: Poikilocytosis 2+; RBC Morph Comp No
[2020-10-26 10:31] LABS: Anisocytosis 2+; Schistocytes 1+; Tear Drop Cells Trace
[2020-10-26 10:32] LABS: Giant Platelets Trace
[2020-10-26 10:34] LABS: Tumor Marker Alpha Fetoprotein 83.3 ng/mL (0-8.3)
[2020-10-26 10:45] LABS: Alanine Aminotransferase 15 U/L (0-41); Albumin Level 3.8 g/dL (3.5-5.2); Alkaline Phosphatase 59 IU/L (40-130); Anion Gap 12.5 (5-19); Aspartate Amino Transferase 18 U/L (0-40); Blood Urea Nitrogen 20 mg/dL (8-23); Calcium 8.5 mg/dL (8.5-10.5); Carbon Dioxide 24 mmol/L (22-29); Chloride 103 mmol/L (98-107); Globulin 3.3 g/dL (1.3-4.6); Glucose 90 mg/dL (65-115); Lactate Dehydrogenase 153 U/L (135-225); Osmolality Calculated 282 mOsm/kg (285-295); Potassium 4.5 mmol/L (3.5-5.1); Sodium 135 mmol/L (136-145); Total Bilirubin 0.3 mg/dL (0.15-1.2); Total Protein 7.1 g/dL (6.6-8.7)
== END 2020-10-26 09:12 | disposition home or self-care (01) ==
PROVIDERS: PCP Internal Medicine; Visit Provider Internal Medicine Gastroenterology
DX: Z94.4 Liver transplant status (principal); C22.0 Liver cell carcinoma; C79.70 Secondary malignant neoplasm of unspecified adrenal gland; Z51.81 Encounter for therapeutic drug level monitoring
CPT/HCPCS: 80053; 80197; 82105; 83615; 85025; 85610

== ENCOUNTER 2020-11-19 10:09 | Outpatient (CLI) | payer MEDICARE, SELFPAY ==
--- NOTE | 2020-11-19 10:30 | XR_ITS ---
WS: [id number] LEFT SHOULDER: 3 VIEW(S) TECHNIQUE: Internal and external rotation with Y view. HISTORY: PAIN IN LEFT SHOULDER COMPARISON: None available. No fracture or dislocation or soft tissue abnormality. Mild narrowing of the AC joint. Hypertrophic osteophyte extends superiorly from the distal clavicle. XR/XR shoulder LT min 2V* [id number] IMPRESSION: Mild AC joint osteoarthritis.
== END 2020-11-19 10:10 | disposition home or self-care (01) ==
PROVIDERS: PCP Internal Medicine; Visit Provider Internal Medicine
DX: M25.512 Pain in left shoulder (principal); M19.012 Primary osteoarthritis, left shoulder
CPT/HCPCS: 73030

== ENCOUNTER 2021-01-29 09:26 | Outpatient (CLI) | payer MEDICARE, SELFPAY ==
[2021-01-29 10:12] LABS: Basophils # 0.1 10^3/uL (0.0-0.1); Basophils % 0.7 %; Eosinophils # 0.4 10^3/uL (0.0-0.8); Eosinophils % 3.9 %; Hemoglobin 10.6 g/dL (11.7-16.6); Lymphocytes % 30.7 %; Mean Corpuscular HGB Conc 30.3 g/dL (30.0-36.0); Mean Corpuscular Hemoglobin 25.4 pg (28.0-34.0); Mean Corpuscular Volume 83.9 fL (80-94); Mean Platelet Volume 10.8 fL (7.4-10.4); Monocytes # 1.2 10^3/uL (0.2-0.9); Monocytes % 12.7 %; Neutrophils # 5.05 10^3/uL (1.8-7.7); Neutrophils % 51.5 %; Nucleated Red Blood Cells % 0 %; Platelet Count 422 10^3/cmm (130-400); Red Blood Count 4.17 10^6/uL (4.1-5.3); Red Cell Distribution Width 16.2 % (12.1-15.1); White Blood Count 9.8 10^3/uL (4.0-10.0)
[2021-01-29 10:24] LABS: INR 1.03 (0.8-1.2)
[2021-01-29 10:29] LABS: Alanine Aminotransferase 19 U/L (0-41); Alkaline Phosphatase 81 IU/L (40-130); Anion Gap 13.4 (5-19); Aspartate Amino Transferase 16 U/L (0-40); Blood Urea Nitrogen 22 mg/dL (8-23); Calcium 8.7 mg/dL (8.5-10.5); Carbon Dioxide 26 mmol/L (22-29); Chloride 106 mmol/L (98-107); Globulin 3.5 g/dL (1.3-4.6); Glucose 91 mg/dL (65-115); Osmolality Calculated 295 mOsm/kg (285-295); Potassium 4.4 mmol/L (3.5-5.1); Sodium 141 mmol/L (136-145); Total Bilirubin 0.5 mg/dL (0.15-1.2); Total Protein 7.5 g/dL (6.6-8.7)
[2021-01-29 10:47] LABS: Tumor Marker Alpha Fetoprotein 111.9 ng/mL (0-8.3)
== END 2021-01-29 09:27 | disposition home or self-care (01) ==
PROVIDERS: PCP Internal Medicine; Visit Provider Physician Assistant Medical
DX: Z94.0 Kidney transplant status (principal); C22.0 Liver cell carcinoma; Z79.899 Other long term (current) drug therapy
CPT/HCPCS: 36415; 80053; 80197; 82105; 85025; 85610

== ENCOUNTER 2021-04-03 10:20 | Outpatient (CLI) | payer MEDICARE, SELFPAY ==
[2021-04-03] VITALS (20 sets, daily range): BP systolic 106–121; BP diastolic 64–75; PULSE 60–98; RESP 13–18; TEMP 36.2–37.5; O2SAT 95–98; BMI 21.4
--- NOTE | 2021-04-03 10:54 | XR_ITS ---
WS: [id number] XR chest 1V portable [id number] REASON FOR EXAM: dyspnea/cough FINDINGS: Mild tortuosity of the thoracic aorta without aneurysmal dilatation. Normal heart size. Calcified granulomatous disease in both hemithoraces. No active pulmonary parenchymal or pleural abno rmality is identified. The bony thorax is intact. XR/XR chest 1V portable [id number] IMPRESSION: No acute chest abnormality identified.
--- NOTE | 2021-04-03 10:54 | ECG_ITS ---
[facility] Test Date: 2021-04-03 Pat Name: Darshan Gray Department: Room: Gender: Male Phd Internship: : 1950 Requested By: Jeffrey Kwok Order Number: [id number] Reading MD: NEETU ZIMMERMAN Measurements Intervals [place] Rate: 90 P: -9 SD: 130 QRS: 12 QRSD: 106 T: 43 QT: 368 QTc: 452 Interpretive Statements SINUS RHYTHM WITH SINUS ARRHYTHMIA INCOMPLETE RIGHT BUNDLE BRANCH BLOCK [90+ ms QRS DURATION, TERMINAL R IN V1/V2, 40+ ms S IN I/aVL/V4/V5/V6] No previous ECG available for comparison Electronically Signed On 04-03-2021 19:27:34 CDT by NEETU ZIMMERMAN [id number]
--- NOTE | 2021-04-03 10:56 | CT_ITS ---
WS: [id number] CT ABDOMEN AND PELVIS WITH CONTRAST HISTORY: Generalized abdominal pain TECHNIQUE: Imaging performed of the abdomen and pelvis with IV contrast. Single phase imaging of the abdomen. Coronal and sagittal reformats are submitted. All CT scans at [facility] use at [address] one of these dose optimization techniques: automated exposure control; mA and/or kV adjustment per patient size (includes targeted exams where dose is matched to clinical indication); or iterative re construction. IV CONTRAST: Omnipaque 300; 75 mL IV. Oral contrast: No DLP: 802.37 mGy.cm COMPARISON: 10/22/2020, 10/03/2020 Lower thorax: There are a few scattered groundglass attenuations at the lung bases. Probably due to p neumonitis. These were not present on 10/22/2020. Heart is normal size. Small hiatal hernia. Liver/biliary system: Normal size with no intrahepatic dilatation. Gallbladder: Prior cholecystectomy. Prominent soft tissue at the gallbladder fossa with multiple surg ical sutures is unchanged. Pancreas: Normal size pancreas. Surgical sutures near the pancreatic tail with stable postsurgical sc arring. Spleen: Small size lobulated spleen with central calcifications. Adrenal glands: Mildly prominent RIGHT adrenal gland is stable. Status post LEFT adrenalectomy. Posts urgical changes in the LEFT adrenal bed with scarring and tethering. Resolved cystic nodule previousl y described at the adrenalectomy bed. Right kidney: Normal. Left kidney: Normal. Aorta: Mild atherosclerosis with no aneurysm. Lymphadenopathy: None. Free fluid: None. GI tract: Increasing soft tissue nodules along the descending colon. There is a soft tissue nodule wh ich is probably a mesenteric deposit just laterally and inseparable from the descending colon near raymond rgical suture. Metastatic deposit measures 1.5 x 2.7 cm. There is an additional area of mild enhancem ent in the descending colon suspicious for neoplasm. There is a soft tissue mass distending what is p robably a small bowel loop in the LEFT abdomen. This may be metastatic deposit within the lumen of th e small bowel measuring 4.5 x 3.3 cm. Focal area of fat necrosis in the central mesentery. Abdominal wall: Postsurgical changes along the midline. Pelvis: No free fluid or adenopathy within the pelvis. Bones: L2 stable mild compression deformity. CT/CT abdomen pelvis w con* [id number] IMPRESSION: 1. Progression of soft tissue nodules and fat stranding involving the descendi ng colon with extension into the pericolonic fat. Suspect new mesenteric deposi ts and increasing descending colonic neoplasm. There is tethering of several sm all bowel loops in the LEFT abdomen with a possible mass in the central lumen o f the small bowel. 2. Prior LEFT adrenalectomy. Our cholecystectomy. 3. Central mesenteric fat necrosis.
--- NOTE | 2021-04-03 11:05 | ED_ITS ---
HPI - GI Bleed General: Chief complaint: GI Bleed Stated complaint: Cancer Patient, blood loss past few days Time Seen by Provider: 04/03/21 10:35 History of Present Illness: HPI Narrative: 70-year-old male with a history of colon cancer. His colon cancer is untreated he has been using [id number] and various natural remedies such as garlic. He declined any chemotherapy. Presents today with several days of gross hematochezia and increasing weakness loss of appetite. He denies any vomiting he does report having had a fever at home. 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 complaint: gross hematochezia Onset (ago): day(s) Severity: moderate Relieving factors: none Exacerbating factors: none Context: history of GI bleed and other (Known: CA with mets) Associated symptoms: Reports malaise, poor appetite and weakness; Denies abdominal pain, chills, easy bruising, epistaxis, fever(s), headache(s), nausea, other bleeding, rash, syncope or vomiting Treatments Prior to Arrival: none Review of Systems Const: Reports: malaise; Denies: fever(s) or chills ENMT: Denies: epistaxis Card: Denies: syncope Resp: Denies: dyspnea, productive cough or non-productive cough GI: Denies: abdominal pain, nausea or vomiting : Denies: flank pain, dysuria, urinary frequency or urinary urgency Skin/Breast: Denies: rash Neuro: Denies: headache(s) Cecilio/Lymph: Denies: easy bruising PFSH ED PFSH: Medical History Anemia HCC (hepatocellular carcinoma) HCV (hepatitis C virus) Hypertension Surgical History History of appendectomy History of cholecystectomy History of liver transplant History of tonsillectomy Family History Other CAD (coronary artery disease) Diabetes Social History Smoking and tobacco status: never smoked Alcohol intake: never Household members: spouse Marital status: Physical Exam Const: COMMON NORMALS: no acute distress GENERAL APPEARANCE: cooperative and comfortable ORIENTATION/CONSCIOUSNESS: Yes awake, Yes oriented to person, Yes oriented to place and Yes oriented to time HENMT: COMMON NORMALS: normocephalic, atraumatic and hearing grossly normal bilaterally HEAD & SCALP: normocephalic and atraumatic Neck/C-Spine: COMMON NORMALS: no JVD Resp: COMMON NORMALS: normal respiratory effort, No retractions, No use of accessory muscles and clear to auscultation bilaterally AUSCULTATION: clear to auscultation bilaterally Cardio: COMMON NORMALS: no JVD, regular rate, regular rhythm and No murmurs present (Cardio) RATE: regular rate RHYTHM: regular rhythm GI: AUSCULTATION: Yes normoactive bowel sounds PALPATION: Yes Tenderness to palpation present (GI) Details: LLQ and No Guarding due to palpation present (GI) Extremity: COMMON NORMALS: normal to inspection, capillary refill normal, no clubbing, cyanosis or edema, no calf tenderness and no pedal edema Neuro: SENSORIUM/ORIENTATION: Yes oriented to person, Yes oriented to place and Yes oriented to time Skin: COMMON NORMALS: no rashes or lesions noted GENERAL SKIN EXAM: no rashes or lesions noted Course Vital Signs: Vital signs: Vital Signs Temperature 98.9 F 04/03/21 16:00 Pulse Rate 87 04/03/21 16:00 Respiratory Rate 18 04/03/21 16:00 Blood Pressure 109/67 04/03/21 15:38 Pulse Oximetry 98 04/03/21 16:00 MDM - GI Bleed MDM Narrative: Medical decision making narrative: Reviewed labs with the patient. Is significantly anemic. He will require transfusion we will place make him an outpatient in bed discussed Dr. Medina. Patient does not want any further invasive treatment but is even asking about going directly home. Did encourage him to stay for blood transfusion which she agreed to. Lab Data: Labs: Lab Results 04/03/21 04/03/21 04/03/21 Range/Units 11:20 11:20 11:20 WBC 10.9 H (4.0-10.0) 10^3/ uL RBC 2.17 L (4.1-5.3) 10^6/u L Hgb 5.6 L* (11.7-16.6) g/dL Hct 18.4 L* (42.0-52.0) % MCV 84.8 (80-94) fl MCH 25.8 L (28.0-34.0) pg MCHC 30.4 (30.0-36.0) g/dL RDW 23.9 H (12.1-15.1) % Plt Count 422 H (130-400) 10^3/c mm MPV 10.7 H (7.4-10.4) fL Neut % (Auto) Senior Instructional Designer Lymph % (Auto) Senior Instructional Designer Nuckolls % (Auto) Senior Instructional Designer Eos % (Auto) Senior Instructional Designer Baso % (Auto) Senior Instructional Designer Neut # (Auto) Senior Instructional Designer Lymph # (Auto) Senior Instructional Designer [place]olls # (Auto) Senior Instructional Designer Eos # (Auto) Senior Instructional Designer Baso # (Auto) Senior Instructional Designer Nucleated RBC % (a uto) Senior Instructional Designer Total Counted 100 (0-100) Atypical Lymphs % Not Reportable Absolute Neutrophi ls 8.0 H (1.4-6.5) 10^3/c mm Segmented Neutroph ils 63 % Abs Segm Neuts (Ma n) 6.9 (1.6-7.1) 10/cmm Band Neutrophils 10.0 % Abs Band Neuts (Ma n) 1.1 (0.0-1.2) 10^3/c mm Lymphocytes (Manua l) 14 % Monocytes (Manual) 8.0 % Absolute Monocytes 0.9 H (0.1-0.6) 10^3/c mm Eosinophils (Manua l) Not Reportable Basophils (Manual) Not Reportable Metamyelocytes 1.0 % Myelocytes 2.0 % Nucleated RBCs 2.0 H (0-1) /100WBC Nucleated RBCs # Senior Instructional Designer Smudge Cells Trace Platelet Estimate Normal (Normal) Giant Platelets Trace Hypochromasia 1+ H Poikilocytosis 2+ H Anisocytosis 2+ H Spherocytes Trace Ovalocytes 2+ H Helmet Cells Trace Dorothy Cells Trace Schistocytes Trace RBC Morph Comment Senior Instructional Designer PT 14.60 (12.1-14.9) SECO NDS INR 1.11 (0.8-1.2) APTT 33.1 (23.9-36.7) SECO NDS Sodium (136-145) mmol/L Potassium (3.5-5.1) mmol/L Chloride (98-107) mmol/L Carbon Dioxide (22-29) mmol/L Anion Gap (5-19) BUN (8-23) mg/dL Creatinine (0.7-1.2) mg/dL GFR Calculation Glucose (65-115) mg/dL Calculated Osmolal ity (285-295) mOsm/k g Lactic Acid 0.7 (0.5-2.2) mmol/L Calcium (8.5-10.5) mg/dL Total Bilirubin (0.15-1.2) mg/dL AST (0-40) U/L ALT (0-41) U/L Alkaline Phosphata se (40-130) IU/L Total Protein (6.6-8.7) g/dL Albumin (3.5-5.2) g/dL Globulin (1.3-4.6) g/dL Blood Type Rho(D) Type Antibody Screen Crossmatch 04/03/21 04/03/21 Range/Units 11:20 12:19 WBC (4.0-10.0) 10^3/ uL RBC (4.1-5.3) 10^6/u L Hgb (11.7-16.6) g/dL Hct (42.0-52.0) % MCV (80-94) fl MCH (28.0-34.0) pg MCHC (30.0-36.0) g/dL RDW (12.1-15.1) % Plt Count (130-400) 10^3/c mm MPV (7.4-10.4) fL Neut % (Auto) Lymph % (Auto) Nuckolls % (Auto) Eos % (Auto) Baso % (Auto) Neut # (Auto) Lymph # (Auto) Nuckolls # (Auto) Eos # (Auto) Baso # (Auto) Nucleated RBC % (a uto) Total Counted (0-100) Atypical Lymphs % Absolute Neutrophi ls (1.4-6.5) 10^3/c mm Segmented Neutroph ils % Abs Segm Neuts (Ma n) (1.6-7.1) 10/cmm Band Neutrophils % Abs Band Neuts (Ma n) (0.0-1.2) 10^3/c mm Lymphocytes (Manua l) % Monocytes (Manual) % Absolute Monocytes (0.1-0.6) 10^3/c mm Eosinophils (Manua l) Basophils (Manual) Metamyelocytes % Myelocytes % Nucleated RBCs (0-1) /100WBC Nucleated RBCs # Smudge Cells Platelet Estimate (Normal) Giant Platelets Hypochromasia Poikilocytosis Anisocytosis Spherocytes Ovalocytes Helmet Cells [place] Cells Schistocytes RBC Morph Comment PT (12.1-14.9) SECO NDS INR (0.8-1.2) APTT (23.9-36.7) SECO NDS Sodium 129 L (136-145) mmol/L Potassium 4.5 (3.5-5.1) mmol/L Chloride 97 L (98-107) mmol/L Carbon Dioxide 23 (22-29) mmol/L Anion Gap 13.5 (5-19) BUN 25 H (8-23) mg/dL Creatinine 0.7 (0.7-1.2) mg/dL GFR Calculation Not Reportable Glucose 103 (65-115) mg/dL Calculated Osmolal ity 273 L (285-295) mOsm/k g Lactic Acid (0.5-2.2) mmol/L Calcium 7.9 L (8.5-10.5) mg/dL Total Bilirubin 0.2 (0.15-1.2) mg/dL AST 13 (0-40) U/L ALT 26 (0-41) U/L Alkaline Phosphata se 40 (40-130) IU/L Total Protein 5.7 L (6.6-8.7) g/dL Albumin 2.9 L (3.5-5.2) g/dL Globulin 2.8 (1.3-4.6) g/dL Blood Type O Positive Rho(D) Type Positive Antibody Screen Negative Crossmatch See Detail Discharge Plan Discharge Patient Disposition: Home Clinical Impression: Hematochezia, Colon cancer metastasized to multiple sites Condition: Stable Coding Level of Care Code ED Rn [facility] Fwd Exam Comprehensive
[2021-04-03 11:29] LABS: Mean Corpuscular HGB Conc 30.4 g/dL (30.0-36.0); Mean Corpuscular Hemoglobin 25.8 pg (28.0-34.0); Mean Corpuscular Volume 84.8 fl (80-94); Mean Platelet Volume 10.7 fL (7.4-10.4); Platelet Count 422 10^3/cmm (130-400); Red Blood Count 2.17 10^6/uL (4.1-5.3); Red Cell Distribution Width 23.9 % (12.1-15.1); White Blood Count 10.9 10^3/uL (4.0-10.0)
[2021-04-03 11:46] LABS: INR 1.11 (0.8-1.2); Lactic Sepsis W/Reflex 0.7 mmol/L (0.5-2.2)
[2021-04-03 11:47] LABS: Partial Thromboplastin Time 33.1 SECONDS (23.9-36.7)
[2021-04-03 11:54] LABS: Alanine Aminotransferase 26 U/L (0-41); Albumin Level 2.9 g/dL (3.5-5.2); Alkaline Phosphatase 40 IU/L (40-130); Anion Gap 13.5 (5-19); Aspartate Amino Transferase 13 U/L (0-40); Blood Urea Nitrogen 25 mg/dL (8-23); Calcium 7.9 mg/dL (8.5-10.5); Carbon Dioxide 23 mmol/L (22-29); Chloride 97 mmol/L (98-107); Globulin 2.8 g/dL (1.3-4.6); Glucose 103 mg/dL (65-115); Osmolality Calculated 273 mOsm/kg (285-295); Potassium 4.5 mmol/L (3.5-5.1); Sodium 129 mmol/L (136-145); Total Bilirubin 0.2 mg/dL (0.15-1.2); Total Protein 5.7 g/dL (6.6-8.7)
[2021-04-03 12:00] LABS: Hematocrit 18.4 % (42.0-52.0); Hemoglobin 5.6 g/dL (11.7-16.6)
[2021-04-03 12:02] LABS: Total Cells Counted 100 (0-100)
[2021-04-03 12:04] LABS: Absolute Segmented Neutrophil 6.9 10/cmm (1.6-7.1); Band Neutrophils Absolute 1.1 10^3/cmm (0.0-1.2); Lymphocytes 14 %; Monocytes Absolute 0.9 10^3/cmm (0.1-0.6); Segmented Neutrophils 63 %
[2021-04-03] MEDS: iohexol 300 mg/mL 100 mL Btl IV (12:04)
[2021-04-03 12:06] LABS: Anisocytosis 2+; Giant Platelets Trace; Hypochromasia 1+; Platelet Estimate Normal (Normal); Poikilocytosis 2+; Spherocytes Trace
[2021-04-03 12:07] LABS: Burr Cells Trace; Helmet Cells Trace; Ovalocytes 2+; Schistocytes Trace; Smudge Cells Trace
--- NOTE | 2021-04-03 13:59 | PC.NURSE ---
Blood started within 20mins. Blood verified by second nurse KYLE Shrestha.
[2021-04-03] MEDS: sodium chloride 0.9% (100 ml) 100 ML 10 ML (14:02)
--- NOTE | 2021-04-03 15:35 | PM.HP ---
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 He presented to ER due to month or longer history of hematochezia, increasing weakness, loss of appetite. In ER noted to have anemia with hemoglobin of 5.6, and on discussion stating he would be willing to receive PRBC transfusion and then return home. On discussion with him he confirms he has not been want to receive additional treatment for his cancer. He has not yet discussed hospice care with his primary team, but states he will consider this given his goals. Discussing with him CT scan findings with progression of metastatic disease, pericolonic invasion. He would not want to have any kind of palliative surgery or diversion procedure. He states he may consider potential embolization procedure in case of recurrence/persistence of bleeding. Review of Systems Const: Reports: fatigue and other (chronic headache); Denies: fever(s), chills, body aches or malaise Eyes: Denies: change in vision or eye redness ENMT: Denies: throat pain, oral sores or ear or mastoid pain Card: Denies: chest pain, edema, pre-syncope or dyspnea on exertion Resp: Denies: dyspnea, productive cough, change in phlegm color or hemoptysis GI: Reports: hematochezia; Denies: abdominal pain, nausea, vomiting, diarrhea or constipation : Denies: flank pain, difficulty urinating, urinary frequency or hematuria Musc: Denies: back pain, joint swelling or joint redness Skin/Breast: Denies: rash, sores or new lesions Neuro: Denies: headache(s), numbness in extremities, weakness in extremities, dizziness, confusion or seizure-like activity Endo: Denies: polyuria or polydipsia Cecilio/Lymph: Denies: easy bleeding or purpura All/Imm: Denies: urticaria, throat swelling or tongue swelling Medications/Allergies Home Medications Medication Instructions Recorded Confirmed Last Taken Type Cecilio-Plex Cap 1 cap PO DAILY 10/03/20 04/03/21 Unknown History Vitamin B-12 1,000 mg PO DAILY 10/03/20 04/03/21 04/02/21 History Vitamin D3 25 mcg PO DAILY 10/03/20 04/03/21 04/02/21 History aspirin [Aspir-81] 81 mg PO DAILY 10/03/20 04/03/21 04/02/21 History iron 1 cap PO TID 10/03/20 04/03/21 04/02/21 History pantoprazole [Protonix] 20 mg PO DAILY 10/03/20 04/03/21 04/02/21 History tacrolimus See Rx Instructions .ROUTE .COMPLEX 10/03/20 04/03/21 04/02/21 History Ginko Biloba 1 tab PO DAILY 04/03/21 04/03/21 04/02/21 History Probiotic 1 tab PO DAILY 04/03/21 04/03/21 04/02/21 History calcium carbonate [Calcium 600] 600 mg PO DAILY 04/03/21 04/03/21 04/02/21 History ferrous sulfate [Iron (ferrous 325 mg PO BID 04/03/21 04/03/21 04/02/21 History sulfate)] flaxseed oil 1,000 mg PO DAILY 04/03/21 04/03/21 04/02/21 History magnesium oxide 800 mg PO BID 04/03/21 04/03/21 04/02/21 History naphazoline-pheniramine See Rx Instructions .ROUTE .COMPLEX 04/03/21 04/03/21 Unknown History Allergies Allergy/AdvReac Type Severity Reaction Status Date / Time No Known Allergies Allergy Verified 03/27/21 13:48 PFSH Acute PFSH: Medical History Anemia HCC (hepatocellular carcinoma) HCV (hepatitis C virus) Hypertension Surgical History History of appendectomy History of cholecystectomy History of liver transplant History of tonsillectomy Family History Other CAD (coronary artery disease) Diabetes Social History Smoking and tobacco status: never smoked Alcohol intake: never Household members: spouse Marital status: Vitals/I&O/Wt Last Vital Signs Temp 99.3 F 04/03/21 14:11 Pulse 92 04/03/21 14:26 Resp 16 04/03/21 14:26 BP 106/67 04/03/21 14:26 Pulse Ox 97 04/03/21 14:26 04/03/21 04/03/21 04/03/21 06:59 14:59 22:59 Intake Total 0 / 0 Balance 0 / 0 Weight last 48 hrs Weight 60.781 kg Physical Exam Const: COMMON NORMALS: no acute distress and patient oriented x3 GENERAL APPEARANCE: frail appearing OTHER: Pale HENMT: COMMON NORMALS: oropharynx normal Neck/C-Spine: COMMON NORMALS: no JVD Resp: COMMON NORMALS: normal respiratory effort and clear to auscultation bilaterally AUSCULTATION: clear to auscultation bilaterally Cardio: COMMON NORMALS: no JVD, regular rhythm, S1 normal heart sound present, S2 normal heart sound present and No murmurs present (Cardio) RHYTHM: regular rhythm HEART SOUNDS: S1 normal heart sound present and S2 normal heart sound present GI: COMMON NORMALS: Normal to inspection, nondistended, normoactive bowel sounds present, Soft to palpation and non-tender PALPATION: Yes Soft to palpation Extremity: COMMON NORMALS: no joint enlargement and no pedal edema Neuro: COMMON NORMALS: patient oriented x3 and moves all extremities Skin: COMMON NORMALS: no rashes or lesions noted GENERAL SKIN EXAM: no rashes or lesions noted Data : 04/03/21 11:20 04/03/21 11:20 A&P Assessment and plan (1) Symptomatic anemia: Reports history about a month of hematochezia. Currently symptomatic anemia, hemoglobin 5.6. 2 units PRBC requested for transfusion in ER with his agreement. He would not want surgical intervention for palliative treatment, however, is agreeable for recheck hemoglobin subsequently. States may consider embolization procedure in case of persistent/recurrent bleeding. In case hemoglobin stable wants to follow-up with his primary team to discuss possible outpatient referral if needed. Status: Acute (2) Hematochezia: Discussed with ER physician, patient. Appears to have progression of sensation nodules and fat stranding involving descending colon with extension into the pericolonic fat. Suspected new mesenteric deposits and increased descending colon neoplasm. Tethering of several small bowel loops in left abdomen with possible mass in central lumen of small bowel. Central mesenteric fat necrosis. Prior left adrenalectomy. Discussed findings with him. Given immunocompromise, hematochezia, will check also C. difficile, stool bacterial, parasite panel to exclude infectious etiology contributing to the month-long hematochezia. Status: Acute (3) 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: He does not want to seek any more chemotherapy, does not want aggressive surgical intervention. Discussing with him whether hospice has been discussed, he states has not been considered so far. Discussed with him with his goals of care of avoiding aggressive interventions, hospice care would be appropriate if he were wanting to pursue it to help him and his family cope with his condition and symptoms. He states will be reaching out to his primary provider to discuss this. Status: Acute Additional A&P Information History of liver transplantation Other comorbidities noted In case of cardiopulmonary arrest wants attempted CPR. Attestations Medical Necessity Statement*: Needs to stay for blood transfusion due to severe symptomatic anemia and reassessment of hemoglobin for adequate transfusion response. Coding Level of Care Code Acute Maintenance [employer] for Ruthie Choudhury Diagnoses Symptomatic anemia D64.9 Hematochezia K92.1 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 C22.8
[2021-04-03] MEDS: acetaminophen 325 mg Tablet 650 MG PO (17:44)
[2021-04-03] MEDS: ferrous sulfate EC 325 mg Tablet PO (17:44)
[2021-04-03] MEDS: tacrolimus 0.5 mg Capsule 1 MG PO (17:44)
[2021-04-03] MEDS: sodium chloride 0.9% (100 ml) 100 ML 50 ML (18:19)
[2021-04-03 22:22] LABS: Hematocrit 26.3 % (42.0-52.0); Hemoglobin 8.6 g/dL (11.7-16.6)
[2021-04-04 03:30] VITALS: BP 129/80; PULSE 76; RESP 16; TEMP 36.8; O2SAT 98
--- NOTE | 2021-04-04 08:57 | PM.SDS ---
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 He presented to ER due to month or longer history of hematochezia, increasing weakness, loss of appetite. In ER noted to have anemia with hemoglobin of 5.6, and on discussion stating he would be willing to receive PRBC transfusion and then return home. On discussion with him he confirms he has not been want to receive additional treatment for his cancer. He has not yet discussed hospice care with his primary team, but states he will consider this given his goals. Discussing with him CT scan findings with progression of metastatic disease, pericolonic invasion. He would not want to have any kind of palliative surgery or diversion procedure. He states he may consider potential embolization procedure in case of recurrence/persistence of bleeding. Review of Systems Const: Reports: fatigue and other (chronic headache); Denies: fever(s), chills, body aches or malaise Eyes: Denies: change in vision or eye redness ENMT: Denies: throat pain, oral sores, ear or mastoid pain or epistaxis Card: Denies: chest pain, edema, syncope, pre-syncope or dyspnea on exertion Resp: Denies: dyspnea, productive cough, non-productive cough, change in phlegm color or hemoptysis GI: Reports: hematochezia; Denies: abdominal pain, nausea, vomiting, diarrhea or constipation : Denies: flank pain, difficulty urinating, dysuria, urinary frequency, urinary urgency or hematuria Musc: Denies: back pain, joint swelling or joint redness Skin/Breast: Denies: rash, sores or new lesions Neuro: Denies: headache(s), numbness in extremities, weakness in extremities, dizziness, confusion or seizure-like activity Endo: Denies: polyuria or polydipsia Cecilio/Lymph: Denies: easy bruising, easy bleeding or purpura All/Imm: Denies: urticaria, throat swelling or tongue swelling Home Meds/Allergies Home Medications and Allergies Home Medications Medication Instructions Recorded Confirmed Type Cecilio-Plex Cap 1 cap PO DAILY 10/03/20 04/03/21 History Vitamin B-12 1,000 mg PO DAILY 10/03/20 04/03/21 History Vitamin D3 25 mcg PO DAILY 10/03/20 04/03/21 History iron 1 cap PO TID 10/03/20 04/03/21 History pantoprazole [Protonix] 20 mg PO DAILY 10/03/20 04/03/21 History tacrolimus See Rx Instructions .ROUTE .COMPLEX 10/03/20 04/03/21 History Calcium 600 600 mg PO DAILY 04/03/21 04/03/21 History Ginko Biloba 1 tab PO DAILY 04/03/21 04/03/21 History Iron (ferrous sulfate) 325 mg PO BID 04/03/21 04/03/21 History Probiotic 1 tab PO DAILY 04/03/21 04/03/21 History flaxseed oil 1,000 mg PO DAILY 04/03/21 04/03/21 History magnesium oxide 800 mg PO BID 04/03/21 04/03/21 History naphazoline-pheniramine See Rx Instructions .ROUTE .COMPLEX 04/03/21 04/03/21 History Allergies Allergy/AdvReac Type Severity Reaction Status Date / Time No Known Allergies Allergy Verified 03/27/21 13:48 PFSH Acute PFSH: Medical History Anemia HCC (hepatocellular carcinoma) HCV (hepatitis C virus) Hypertension Surgical History History of appendectomy History of cholecystectomy History of liver transplant History of tonsillectomy Family History Other CAD (coronary artery disease) Diabetes Social History Smoking and tobacco status: never smoked Alcohol intake: never Household members: spouse Marital status: Vitals/I&O/Wt Last Vital Signs Temp 98.3 F 04/04/21 03:30 Pulse 76 04/04/21 03:30 Resp 16 04/04/21 03:30 BP 129/80 04/04/21 03:30 Pulse Ox 98 04/04/21 03:30 04/03/21 04/04/21 04/04/21 22:59 06:59 14:59 Intake Total 100 / 100 100 / 200 Balance 100 / 100 100 / 200 Weight last 48 hrs Weight 60.781 kg Physical Exam Narrative: EXAM NARRATIVE: Denies any issues overnight. No complaints this morning. Feels much better. Feels ready to return home and continue outpatient follow up. Const: COMMON NORMALS: no acute distress and patient oriented x3 GENERAL APPEARANCE: cooperative, comfortable and frail appearing HENMT: COMMON NORMALS: oropharynx normal Neck/C-Spine: COMMON NORMALS: no JVD Resp: COMMON NORMALS: normal respiratory effort and clear to auscultation bilaterally AUSCULTATION: clear to auscultation bilaterally Cardio: COMMON NORMALS: no JVD, regular rhythm, S1 normal heart sound present, S2 normal heart sound present and No murmurs present (Cardio) RHYTHM: regular rhythm HEART SOUNDS: S1 normal heart sound present and S2 normal heart sound present GI: COMMON NORMALS: Normal to inspection, nondistended, normoactive bowel sounds present, Soft to palpation and non-tender PALPATION: Yes Soft to palpation Extremity: COMMON NORMALS: no joint enlargement and no pedal edema Neuro: COMMON NORMALS: patient oriented x3 and moves all extremities Skin: COMMON NORMALS: no rashes or lesions noted GENERAL SKIN EXAM: no rashes or lesions noted Hospital Course Hospital Course He underwent PRBC transfusion of 2 units. He ended up staying overnight due to length of the transfusion, subsequent follow-up hemoglobin showed good response at 8.6. He did not have any bowel movements overnight, no bleeding noted. Could not provide a stool sample for requested stool studies including C. difficile, bacterial and parasite panels. Please follow-up in office on the above issues. Please discuss with him consideration of referral for IR assessment for possible embolization in case of recurrent/persistent bleeding and complete stool studies. Please discuss overall goals of care. Please discuss further and consider referral to hospice as he appears he may be interested in the service. SSS Data Data Completed and Pending: Completed Studies During Hospitalization Category Date Time Status CT abdomen pelvis w con* [id number] Stat Cat Scan 04/03/21 10:56 Completed XR chest 1V coretta ble [id number] Stat Exams 04/03/21 10:54 Completed Pending at discharge Category Date Time Status Clostridioides Di fficile PCR Routin e Lab 04/03/21 16:30 Uncollected Enteric Bacterial Panel by PCR Rout ine Lab 04/03/21 16:30 Uncollected Enteric Parasite Panel by PCR Routi ne Lab 04/03/21 16:30 Uncollected UA w/Reflex to Mi croscope [Urinalys is] Stat Lab 04/03/21 13:05 Uncollected Diagnoses at Discharge Discharge Diagnosis (1) Symptomatic anemia: Status: Acute (2) Hematochezia: Status: Acute (3) 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: Status: Acute Discharge Plan Discharge Patient Disposition: Home Prescriptions: Continued Calcium 600 600 mg calcium (1,500 mg) Tablet 600 mg PO DAILY RF: 0 flaxseed oil 1,000 mg Capsule 1,000 mg PO DAILY RF: 0 Iron (ferrous sulfate) 325 mg (65 mg iron) Tablet 325 mg PO BID RF: 0 naphazoline-pheniramine 0.025-0.3 % Drops See Rx Instructions .ROUTE .COMPLEX RF: 0 magnesium oxide 400 mg magnesium Tablet 800 mg PO BID RF: 0 Ginko Biloba 1 tab PO DAILY RF: 0 Probiotic 1 tab PO DAILY RF: 0 pantoprazole [Protonix] 20 mg Tablet,Delayed Release (Dr/Ec) 20 mg PO DAILY RF: 0 tacrolimus 0.5 mg Capsule See Rx Instructions .ROUTE .COMPLEX RF: 0 Cecilio-Plex Cap 1 cap PO DAILY RF: 0 Vitamin B-12 1,000 mg PO DAILY RF: 0 Vitamin D3 25 mcg PO DAILY RF: 0 iron 1 cap PO TID RF: 0 Discontinued aspirin [Aspir-81] 81 mg Tablet,Delayed Release (Dr/Ec) 81 mg PO DAILY RF: 0 Discharge Orders: Discharge Order (Routine); Ordered 04/04/21 Ordered By: Landry Medina Referrals: Azra Cortez MD [Primary Care Provider] - 4-7 days Patient Instructions: Opioid Safety Activity Restrictions/Additional Instructions: Please follow-up with your primary provider for reassessment of blood count. Please discuss referral for interventional radiology for treatment with embolization in case of recurrent bleeding. Please do not take any aspirin. Please discuss more regarding hospice care with your primary provider. 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
[2021-04-04] MEDS: tacrolimus 0.5 mg Capsule 1.5 MG PO (09:06)
[2021-04-04] MEDS: pantoprazole DR 40 mg Tablet PO (09:06)
[2021-04-04] MEDS: ferrous sulfate EC 325 mg Tablet PO (09:06)
--- NOTE | 2021-04-04 09:57 | PC.NURSE ---
PT HAS DONE WELL THIS MORNING. NO COMPLAINTS OF PAIN. PT IS GOOD TO GO PER MD. AN APPOINTMENT WAS SET UP FOR PT TO SEE DR AN. PT WAS ADVISED TO STOP TAKING ASPIRIN. ALL OTHER INSTRUCTIONS WERE GONE OVER WITH PT. ALL QUESTIONS ANSWERED. IV WAS REMOVED. CATHETER TIP INTACT. PT TOLERATED WELL. PT SAFELY WHEELED OUT BY THIS NURSE.
== END 2021-04-04 09:57 | disposition home or self-care (01) ==
LOC: ER 12:56 → OPMS 15:20 → MEDSURG 15:36
PROVIDERS: Emergency Provider Family Medicine; PCP Internal Medicine; Visit Provider Internal Medicine
DX: D64.9 Anemia, unspecified (principal); K92.1 Melena; C22.8 Malignant neoplasm of liver, primary, unspecified as to type; Z94.4 Liver transplant status; Z86.19 Personal history of other infectious and parasitic diseases; Z82.49 Family history of ischemic heart disease and other diseases of the circulatory system; Z83.3 Family history of diabetes mellitus
CPT/HCPCS: 36415; 36430; 71045; 74177; 80053; 83605; 85007; 85014; 85018; 85025; 85610; 85730; 86850; 86900; 86920; 93005; 99291; J7507; P9016; Q9967

== ENCOUNTER 2021-06-03 08:04 | Outpatient (CLI) | payer OTHER, MEDICARE, SELFPAY ==
[2021-06-03 08:28] LABS: Basophils # 0.1 10^3/uL (0.0-0.1); Basophils % 0.5 %; Eosinophils # 0.3 10^3/uL (0.0-0.8); Eosinophils % 2.9 %; Hemoglobin 12.8 g/dL (11.7-16.6); Lymphocytes # 2.6 10^3/uL (0.8-4.8); Lymphocytes % 22.7 %; Mean Corpuscular HGB Conc 31.2 g/dL (30.0-36.0); Mean Corpuscular Hemoglobin 27.7 pg (28.0-34.0); Mean Corpuscular Volume 88.7 fl (80-94); Mean Platelet Volume 10.9 fL (7.4-10.4); Monocytes # 1.3 10^3/uL (0.2-0.9); Monocytes % 11.1 %; Neutrophils # 7.16 10^3/uL (1.8-7.7); Neutrophils % 62.3 %; Nucleated Red Blood Cells % 0 %; Platelet Count 426 10^3/cmm (130-400); Red Blood Count 4.62 10^6/uL (4.1-5.3); Red Cell Distribution Width 16.7 % (12.1-15.1); White Blood Count 11.5 10^3/uL (4.0-10.0)
[2021-06-03 08:51] LABS: INR 1.06 (0.8-1.2)
[2021-06-03 09:06] LABS: Tumor Marker Alpha Fetoprotein 267.7 ng/mL (0-8.3)
[2021-06-03 09:17] LABS: Alanine Aminotransferase 29 U/L (0-41); Albumin Level 4.1 g/dL (3.5-5.2); Alkaline Phosphatase 67 IU/L (40-130); Anion Gap 14.4 (5-19); Aspartate Amino Transferase 18 U/L (0-40); Blood Urea Nitrogen 20 mg/dL (8-23); Carbon Dioxide 25 mmol/L (22-29); Chloride 104 mmol/L (98-107); Globulin 3.9 g/dL (1.3-4.6); Glucose 97 mg/dL (65-115); Osmolality Calculated 291 mOsm/kg (285-295); Potassium 4.4 mmol/L (3.5-5.1); Sodium 139 mmol/L (136-145); Total Bilirubin 0.3 mg/dL (0.15-1.2)
== END 2021-06-03 08:05 | disposition home or self-care (01) ==
LOC: LAB 08:07
PROVIDERS: PCP Internal Medicine; Visit Provider Physician Assistant Medical
DX: Z94.4 Liver transplant status (principal); C22.0 Liver cell carcinoma; C79.70 Secondary malignant neoplasm of unspecified adrenal gland; C22.8 Malignant neoplasm of liver, primary, unspecified as to type; Z51.81 Encounter for therapeutic drug level monitoring
CPT/HCPCS: 36415; 80053; 80197; 82105; 85025; 85610